=== PATIENT | male | born 1980 | race Two or more races ===

== ENCOUNTER → 2022-04-06 | Emergency (ER) | payer OTHER | END | disposition left against medical advice (07) | LOC: ER 15:26 | DX: Z53.21 Procedure and treatment not carried out due to patient leaving prior to being seen by health care provider (principal) ==

== ENCOUNTER → 2022-12-28 | Emergency (ER) | payer OTHER ==
[~2022-12-28] VITALS: Ht 172.7 cm; Wt 75.3 kg
[~2022-12-28] MED LIST: ONDANSETRON ODT8 MG PO; PEPCID AC20 MG PO
== END | disposition home or self-care (01) ==
LOC: ER 00:15
DX: R10.13 Epigastric pain (principal); Z88.6 Allergy status to analgesic agent